=== PATIENT | female | born 1990 | race Two or more races ===

== ENCOUNTER 2024-05-07 13:38 | Inpatient (IN) | payer OTHER ==
[~2024-05-07] VITALS: Ht 157.5 cm; Wt 60.3 kg
[2024-05-07] MEDS ORDERED: PRENATA CHEWAB1 EACH PO (14:20)
[2024-05-07] MEDS ORDERED: FOLIC ACID0.8 M1 PO (14:21)
[2024-05-07 15:13] LABS: HEMATOCRIT 35.4 % (36.0-45.00); HEMOGLOBIN 11.5 g/dL (12.0-15.00); MEAN CELL VOLUME 90.2 fL (80.00-100.00); MEAN CORPUSCULAR HEMOGLOBIN 29.4 pg (27.00-32.0); MEAN CORPUSCULAR HGB CONC 32.7 g/dl (32.0-36.0); PLATELET COUNT 254 K/uL (150-450); RED BLOOD COUNT 3.92 M/uL (4.00-6.00); RED CELL DISTRIBUTION WIDTH 13.6 % (11.5-14.5)
[2024-05-07 15:19] LABS: URINE APPEARANCE Clear; URINE BILIRRUBIN Negative (NEGATIVE); URINE BLOOD Negative; URINE COLOR Yellow; URINE GLUCOSE Negative (NEGATIVE); URINE LEUKOCYTE Negative; URINE NITRATE Negative; URINE PROTEIN Negative (NEGATIVE)
[2024-05-07 15:22] LABS: URINE BACTERIA 2002.1 uL (0.0-1933); URINE EPITHELIAL CELLS 21.6 uL (0.0-38.8); URINE WBC 29.6 uL (0.0-23.2)
[2024-05-07 15:29] LABS: INR < 0.93; PARTIAL THROMBOPLASTIN TIME 25.4 SECONDS (22.0-34.0)
[2024-05-07 15:36] LABS: URINE CAST 0.44 uL (0.0-1.40); URINE KETONE 80 (NEGATIVE)
[2024-05-11 07:07] VITALS: BP 108/75
[2024-05-11] MEDS ORDERED: CEFAZOLIN SODIUM 1,000 MG VIAL ONE (14:17)
[2024-05-11] MEDS ORDERED: OXYTOCIN 10 UNITS/ML VIAL ONE (15:24)
[2024-05-11] MEDS ORDERED: ERYTHROMYCIN BASE OPHT 1GM EACH TUBE OP ONE (15:24)
[2024-05-11] MEDS ORDERED: PROMETHAZINE HCL 50 MG/ML AMPUL IM PRN (17:00)
[2024-05-11] MEDS ORDERED: MEPERIDINE HCL/PF 50 MG/ML VIAL IM PRN (17:00)
[2024-05-11] MEDS ORDERED: MORPHINE SULFATE 4 MG/ML VIAL IV ONE ×2 (18:25→19:20)
[2024-05-11] MEDS ORDERED: PROMETHAZINE HCL 50 MG/ML AMPUL IM ONE (20:34)
[2024-05-11 22:13] VITALS: BP 118/79
[2024-05-12 00:22] VITALS: BP 119/77
[2024-05-12 04:30] VITALS: BP 115/75
[2024-05-12 06:49] LABS: HEMOGLOBIN 11.6 g/dL (12.0-15.00); MEAN CORPUSCULAR HEMOGLOBIN 30.2 pg (27.00-32.0); MEAN CORPUSCULAR HGB CONC 34.3 g/dl (32.0-36.0); PLATELET COUNT 203 K/uL (150-450); RED BLOOD COUNT 3.86 M/uL (4.00-6.00); RED CELL DISTRIBUTION WIDTH 13.5 % (11.5-14.5)
[2024-05-12] MEDS ORDERED: OxyCODONE HCL/APAP UD (PERCOCET) PO PRN (08:00)
[2024-05-12] MEDS ORDERED: SIMETHICONE 125 MG CAPSULE PO SCH (08:00)
[2024-05-12 08:23] VITALS: BP 112/72
[2024-05-12] MEDS ORDERED: DOCUSATE SODIUM 100MG CAP PO SCH (09:00)
[2024-05-12] MEDS ORDERED: PNV,CALCIUM 72/IRON/FOLIC ACID 1 TAB TABLET PO SCH (09:00)
[2024-05-12 12:24] VITALS: BP 115/70
[2024-05-12 16:00] VITALS: BP 99/70
[2024-05-13] VITALS: BP 107/72
[2024-05-13 09:15] VITALS: BP 91/65
== END 2024-05-13 15:06 | disposition home or self-care (01) | DRG 785 ==
LOC: O/R 05-11 06:50 → LDR 05-11 09:15 → OB/GYN 05-11 17:52
PROVIDERS: ADMIT Obstetrics & Gynecology; ATTEND Obstetrics & Gynecology
PROC: 0UB70ZZ Excision of Bilateral Fallopian Tubes, Open Approach (ICD-10-PCS; 2024-05-11)
PROC: 4A1HXCZ Monitoring of Products of Conception, Cardiac Rate, External Approach (ICD-10-PCS; 2024-05-11)
PROC: 10D00Z1 Extraction of Products of Conception, Low, Open Approach (ICD-10-PCS; principal; 2024-05-11 09:15)
DX: O34.211 Maternal care for low transverse scar from previous cesarean delivery (principal); Z3A.39 39 weeks gestation of pregnancy; Z37.0 Single live birth; Z30.2 Encounter for sterilization